=== PATIENT | female | born 1990 | race Caucasian/White ===

== ENCOUNTER 2017-03-15 20:00 | Inpatient (IN) | payer MEDICAID ==
[~2017-03-15] VITALS: Ht 152.4 cm; Wt 68.2 kg
[2017-03-15 23:52] LABS: microscopic required? NO
[2017-03-15 23:57] LABS: BASOPHIL % 0.7 % (0-2); PLATELET COUNT 231 x10^3mcL (130-400)
[2017-03-15 23:58] LABS: RED CELL DISTRIBUTION WIDTH 15.8 % (11.5-14.5)
[2017-03-16] VITALS (7 sets, daily range): BP systolic 94–132; BP diastolic 51–90
[2017-03-16 00:05] LABS: CALCIUM 8.4 mg/dL (8.5-10.1); CARBON DIOXIDE 27.9 mmol/L (21-32); CHLORIDE SERUM 99 mmol/L (98-107); CREATININE SERUM 0.6 mg/dL (0.6-1.0); GFR1 > 60 mL/min; GLUCOSE SERUM 144 mg/dL (74-106); POTASSIUM SERUM 3.5 mmol/L (3.5-5.1); SODIUM SERUM 137 mmol/L (136-145)
[2017-03-16 00:12] LABS: urine erythrocyte NEGATIVE (NEGATIVE)
[2017-03-16 00:26] LABS: AMPHETAMINE QUAL UR NONE DETECTED (NEG <=1000)
[2017-03-16 00:26] LABS: FREE T4 0.84 ng/dL (0.76-1.46); FREE THYROXINE INDEX 2.2 ug/dL (1.4-4.5); T4(THYROXINE) 7.2 ug/dL (4.7-13.3)
[2017-03-16 00:27] LABS: ALBUMIN 3.5 g/dL (3.4-5.0); ALKALINE PHOSPHATASE 115 U/L (46-116); BILIRUBIN TOTAL 0.4 mg/dL (0.20-1.00); TOTAL PROTEIN, SERUM 7.5 g/dL (6.4-8.2)
[2017-03-16 00:29] LABS: CHOLESTEROL 224 mg/dL (<200); CHOLESTEROL/HDL RATIO 13.2; HDL CHOLESTEROL 17 mg/dL (40-60); TRIGLYCERIDES 1498 mg/dL (<150)
[2017-03-16] MEDS ORDERED: AMARYL4 MG PO (00:49)
[2017-03-16] MEDS ORDERED: METFORMIN HCL500 MG PO (00:49)
[2017-03-16] MEDS ORDERED: JARDIANCE25 MG PO (00:50)
[2017-03-16 01:11] LABS: ALT/SGPT 78 U/L (14-59); AST/SGOT 35 U/L (15-37)
[2017-03-16 01:22] LABS: PHOSPHOROUS 4.5 mg/dL (2.5-4.9)
[2017-03-16 01:25] LABS: T3 TOTAL 1.15 ng/mL
[2017-03-16 02:13] LABS: AMYLASE 39 U/L (25-115); LIPASE 98 IU/L (73-393)
[2017-03-16 06:09] LABS: BASOPHIL % 0.6 % (0-2); PLATELET COUNT 183 x10^3mcL (130-400)
[2017-03-16 06:20] LABS: CHLORIDE SERUM 103 mmol/L (98-107); CREATININE SERUM 0.7 mg/dL (0.6-1.0); GFR1 > 60 mL/min; GLUCOSE SERUM 141 mg/dL (74-106); MAGNESIUM 1.8 mg/dL (1.8-2.4); PHOSPHOROUS 4.9 mg/dL (2.5-4.9); POTASSIUM SERUM 3.8 mmol/L (3.5-5.1); SODIUM SERUM 136 mmol/L (136-145)
[2017-03-16 06:49] LABS: RED CELL DISTRIBUTION WIDTH 15.5 % (11.5-14.5)
[2017-03-17 05:38] VITALS: BP 101/59
[2017-03-17 06:03] LABS: BASOPHIL % 0.6 % (0-2); PLATELET COUNT 167 x10^3mcL (130-400)
[2017-03-17 06:21] LABS: CALCIUM 7.9 mg/dL (8.5-10.1); CARBON DIOXIDE 24.6 mmol/L (21-32); CHLORIDE SERUM 107 mmol/L (98-107); CREATININE SERUM 0.6 mg/dL (0.6-1.0); GFR1 > 60 mL/min; GLUCOSE SERUM 162 mg/dL (74-106); POTASSIUM SERUM 4.3 mmol/L (3.5-5.1); SODIUM SERUM 137 mmol/L (136-145)
[2017-03-17 06:24] LABS: RED CELL DISTRIBUTION WIDTH 15.3 % (11.5-14.5)
[2017-03-17 09:02] VITALS: BP 102/60
[2017-03-17] MEDS ORDERED: METFORMIN HCL1000 MG PO (12:23)
[2017-03-17] MEDS ORDERED: IBUPROFEN400 MG PO (12:26)
[2017-03-17] MEDS ORDERED: NOR10T PO (12:28)
[2017-03-17 12:33] VITALS: BP 123/75
[2017-03-17] MEDS ORDERED: COLACE100 MG PO (13:05)
[2017-03-17] MEDS ORDERED: BD LACTINEX1.4 MG PO (13:07)
[2017-03-17] MEDS ORDERED: BACTRIM DS1 TAB PO (13:11)
[2017-03-17 14:13] VITALS: BP 123/75
== END 2017-03-17 15:17 | disposition home or self-care (01) | DRG 383 ==
LOC: ED 20:00 → DU 23:09 → MU 03-16 16:16
PROVIDERS: Specialist; ADMIT Family Medicine Sports Medicine
DX: L03.314 Cellulitis of groin (principal); D68.69 Other thrombophilia; E11.59 Type 2 diabetes mellitus with other circulatory complications; B95.62 Methicillin resistant Staphylococcus aureus infection as the cause of diseases classified elsewhere; E11.65 Type 2 diabetes mellitus with hyperglycemia; E78.2 Mixed hyperlipidemia; F17.210 Nicotine dependence, cigarettes, uncomplicated; Z68.29 Body mass index [BMI] 29.0-29.9, adult
CPT/HCPCS: 82962; 83880; 84439; J0696; J1170; J1885; J2001; J2405; J3010; J7030; Q0092; Q0162

== ENCOUNTER 2019-11-25 13:19 | Emergency (ER) | payer OTHER ==
[~2019-11-25] VITALS: Ht 152.4 cm; Wt 63.5 kg
[~2019-11-25 13:19] MED LIST: AMARYL4 MG PO; BACTRIM DS1 TAB PO; BD LACTINEX1.4 MG PO; COLACE100 MG PO; IBUPROFEN400 MG PO; JARDIANCE25 MG PO; METFORMIN HCL1000 MG PO; METFORMIN HCL500 MG PO; NOR10T PO
[2019-11-25 14:04] VITALS: Ht 152.4 cm; Wt 63.5 kg
[2019-11-25 14:57] LABS: microscopic required? NO
[2019-11-25 14:58] LABS: BASOPHIL % 0.8 % (0-2); PLATELET COUNT 208 x10^3mcL (130-400); RED CELL DISTRIBUTION WIDTH 14.3 % (11.5-14.5)
[2019-11-25 15:01] LABS: CALCIUM 8.8 mg/dL (8.5-10.1); CARBON DIOXIDE 26.9 mmol/L (21-32); CHLORIDE SERUM 102 mmol/L (98-107); CREATININE SERUM 0.8 mg/dL (0.6-1.0); GFR1 > 60 mL/min; GLUCOSE SERUM 297 mg/dL (74-106); POTASSIUM SERUM 4.1 mmol/L (3.5-5.1); SODIUM SERUM 139 mmol/L (136-145)
[2019-11-25 15:06] LABS: ALBUMIN 3.8 g/dL (3.4-5.0); ALKALINE PHOSPHATASE 105 U/L (46-116); ALT/SGPT 115 U/L (14-59); AST/SGOT 107 U/L (15-37); BILIRUBIN TOTAL 0.3 mg/dL (0.20-1.00); TOTAL PROTEIN, SERUM 7.3 g/dL (6.4-8.2)
[2019-11-25 15:36] LABS: UA SPECIFIC GRAVITY 1.015 (1.005-1.035); urine erythrocyte NEGATIVE (NEGATIVE)
[2019-11-25 16:44] VITALS: BP 97/67
== END 2019-11-25 16:44 | disposition home or self-care (01) ==
LOC: ED 13:19
PROVIDERS: Emergency Medicine
DX: N12 Tubulo-interstitial nephritis, not specified as acute or chronic (principal); E11.9 Type 2 diabetes mellitus without complications; F17.210 Nicotine dependence, cigarettes, uncomplicated; E78.00 Pure hypercholesterolemia, unspecified; Z90.89 Acquired absence of other organs; Z86.73 Personal history of transient ischemic attack (TIA), and cerebral infarction without residual deficits
CPT/HCPCS: 82962; J0696; J1885; J2405; J7030; J7060

== ENCOUNTER 2020-01-26 18:12 | Emergency (ER) | payer OTHER ==
[~2020-01-26] VITALS: Ht 154.9 cm; Wt 76.2 kg
[2020-01-26 18:19] VITALS: Ht 154.9 cm; Wt 76.2 kg
[2020-01-26 20:08] VITALS: BP 119/81
== END 2020-01-26 20:08 | disposition home or self-care (01) ==
LOC: ED 18:12
DX: L60.0 Ingrowing nail (principal); E11.9 Type 2 diabetes mellitus without complications; E78.00 Pure hypercholesterolemia, unspecified; G45.9 Transient cerebral ischemic attack, unspecified
CPT/HCPCS: J1885; Q0092

== ENCOUNTER 2020-02-04 15:03 | Emergency (ER) | payer OTHER ==
[~2020-02-04] VITALS: Ht 154.9 cm; Wt 77.6 kg
[2020-02-04 15:20] VITALS: Ht 154.9 cm; Wt 77.6 kg
[2020-02-04 18:42] VITALS: BP 114/86
== END 2020-02-04 18:42 | disposition home or self-care (01) ==
LOC: ED 15:03
DX: S39.012A Strain of muscle, fascia and tendon of lower back, initial encounter (principal); S09.8XXA Other specified injuries of head, initial encounter; S59.902A Unspecified injury of left elbow, initial encounter; W18.30XA Fall on same level, unspecified, initial encounter; Y93.89 Activity, other specified; Y92.89 Other specified places as the place of occurrence of the external cause; Y99.8 Other external cause status
CPT/HCPCS: 82962; Q0162